=== PATIENT | female | born 1970 | race Caucasian/White ===

== ENCOUNTER → 2020-08-05 07:32 | Outpatient (CLI) | payer OTHER, SELFPAY ==
[2020-08-05 08:14] LABS: Add Manual Diff / Slide Review NO; Basophils Absolute Auto 0 /uL (0-100); Basophils Percent Auto 0.7 % (0-2); Eosinophils Absolute Auto 100 /uL (0-450); Hematocrit 41.1 % (36-46); Lymphocytes Absolute Auto 3400 /uL (1100-4500); Lymphocytes Percent Auto 47.4 % (25-40); Mean Corpuscular HGB Conc 34.1 % (30-36); Mean Corpuscular Hemoglobin 29.9 PG (26-34); Mean Corpuscular Volume 87.7 fL (80-100); Monocytes Absolute Auto 400 /uL (0-900); Monocytes Percent Auto 6.3 % (3-14); Neutrophils Absolute Auto 3100 /uL (1500-7000); Neutrophils Percent Auto 43.6 % (50-75); Platelet Count 247 X10^3/uL (150-400); Red Blood Cell Count 4.69 X10^6/uL (4.0-5.2); Red Cell Distribution Width 13.4 % (11.6-14.8); White Blood Cell Count 7.1 X10^3/uL (4.5-11.0)
[2020-08-05 08:58] LABS: Alanine Aminotransferase 38 IU/L (<35); Albumin 4.5 g/dL (3.5-5.0); Albumin Globulin Ratio 1.8 (1.0-2.8); Alkaline Phosphatase 94 U/L (38-126); Aspartate Aminotransferase 27 IU/L (14-36); BUN Creatinine Ratio 20.6 (6-22); Bilirubin Total 0.3 mg/dL (0.2-1.3); Blood Urea Nitrogen 14 mg/dL (7-17); Calcium 9.4 mg/dL (8.4-10.2); Carbon Dioxide 29 mmol/L (22-32); Chloride 104 mmol/L (98-107); Cholesterol 303 mg/dL (140-199); Estimated Glomerular Filt Rate > 60.0 mL/min (>60); Globulin 2.5 g/dL (1.7-4.1); Glucose 127 mg/dL (70-100); HDL Cholesterol 31 mg/dL (40-60); HEMOLYSIS < 15 (0-50); Potassium 4.8 mmol/L (3.4-5.1); Sodium 138 mmol/L (137-145)
[2020-08-05 09:11] LABS: Triglycerides 828 mg/dL (35-150)
== END ==
PROVIDERS: Family Provider Family Medicine; PCP Registered Nurse; Referring Provider Registered Nurse; Visit Provider Registered Nurse
DX: Z00.00 Encounter for general adult medical examination without abnormal findings (principal); H60.501 Unspecified acute noninfective otitis externa, right ear; F41.8 Other specified anxiety disorders; E78.2 Mixed hyperlipidemia
CPT/HCPCS: 36415; 80053; 80061; 85025

== ENCOUNTER → 2022-06-03 10:16 | Outpatient (CLI) | payer OTHER, SELFPAY ==
[2022-06-03 12:10] LABS: Add Manual Diff / Slide Review NO; Basophils Absolute Auto 0 /uL (0-100); Basophils Percent Auto 0.5 % (0-2); Eosinophils Absolute Auto 200 /uL (0-450); Eosinophils Percent Auto 2.9 % (2-4); Hematocrit 41.6 % (36-46); Hemoglobin 14.4 g/dL (12.0-16.0); Lymphocytes Absolute Auto 3200 /uL (1100-4500); Lymphocytes Percent Auto 53.3 % (25-40); Mean Corpuscular HGB Conc 34.6 % (30-36); Mean Corpuscular Hemoglobin 29.5 PG (26-34); Mean Corpuscular Volume 85.3 fL (80-100); Monocytes Absolute Auto 300 /uL (0-900); Monocytes Percent Auto 5.4 % (3-14); Neutrophils Absolute Auto 2300 /uL (1500-7000); Neutrophils Percent Auto 37.9 % (50-75); Platelet Count 237 X10^3/uL (150-400); Red Blood Cell Count 4.88 X10^6/uL (4.0-5.2); Red Cell Distribution Width 12.9 % (11.6-14.8); White Blood Cell Count 6.1 X10^3/uL (4.5-11.0)
[2022-06-03 12:46] LABS: Alanine Aminotransferase 38 IU/L (<35); Albumin 4.6 g/dL (3.5-5.0); Albumin Globulin Ratio 1.6 (1.0-2.8); Alkaline Phosphatase 75 U/L (38-126); Aspartate Aminotransferase 24 IU/L (14-36); BUN Creatinine Ratio 21.2 (6-22); Bilirubin Total 0.5 mg/dL (0.2-1.3); Blood Urea Nitrogen 14 mg/dL (7-17); Calcium 9.5 mg/dL (8.4-10.2); Carbon Dioxide 27 mmol/L (22-32); Chloride 104 mmol/L (98-107); Cholesterol 243 mg/dL (140-199); Estimated Glomerular Filt Rate > 60 mL/min (>60); Globulin 2.8 g/dL (1.7-4.1); Glucose 124 mg/dL (70-100); HDL Cholesterol 35 mg/dL (40-60); HEMOLYSIS < 15 (0-50); Hemoglobin A1C% w Est Avg Glu 6.7 % (4.0-6.0); LDL Cholesterol Calculated 130 mg/dL (<100); Potassium 4.6 mmol/L (3.4-5.1); Sodium 142 mmol/L (137-145); Total Protein 7.4 g/dL (6.3-8.2); Triglycerides 388 mg/dL (35-150)
[2022-06-03 13:22] LABS: TSH w/ Reflex to FT4 5.62 uIU/mL (0.47-4.68)
[2022-06-03 14:27] LABS: Free T4, Direct Thyroxine 0.81 ng/dL (0.78-2.19)
== END ==
PROVIDERS: Family Provider Family Medicine; PCP Pediatrics; Referring Provider Pediatrics; Visit Provider Pediatrics
DX: E66.9 Obesity, unspecified (principal); E78.5 Hyperlipidemia, unspecified; F33.1 Major depressive disorder, recurrent, moderate; F41.8 Other specified anxiety disorders; R73.01 Impaired fasting glucose
CPT/HCPCS: 36415; 80053; 80061; 83036; 84439; 84443; 85025

== ENCOUNTER → 2022-10-17 08:47 | Outpatient (CLI) | payer SELFPAY ==
[2022-10-17 10:46] LABS: Alanine Aminotransferase 34 IU/L (<35); Albumin 4.3 g/dL (3.5-5.0); Albumin Globulin Ratio 1.7 (1.0-2.8); Alkaline Phosphatase 62 U/L (38-126); Aspartate Aminotransferase 25 IU/L (14-36); BUN Creatinine Ratio 27.4 (6-22); Bilirubin Total 0.3 mg/dL (0.2-1.3); Blood Urea Nitrogen 17 mg/dL (7-17); Calcium 9.1 mg/dL (8.4-10.2); Carbon Dioxide 28 mmol/L (22-32); Chloride 104 mmol/L (98-107); Cholesterol 188 mg/dL (140-199); Estimated Glomerular Filt Rate > 60 mL/min (>60); Globulin 2.5 g/dL (1.7-4.1); Glucose 111 mg/dL (70-100); HDL Cholesterol 32 mg/dL (40-60); HEMOLYSIS < 15 (0-50); LDL Cholesterol Calculated 124 mg/dL (<100); Potassium 4.5 mmol/L (3.4-5.1); Sodium 139 mmol/L (137-145); Total Protein 6.8 g/dL (6.3-8.2); Triglycerides 160 mg/dL (35-150)
[2022-10-17 10:57] LABS: Free T4, Direct Thyroxine 0.71 ng/dL (0.78-2.19)
[2022-10-17 11:11] LABS: Thyroid Stimulating Hormone 6.26 uIU/mL (0.47-4.68)
[2022-10-18 05:29] LABS: x Labcorp Estim. Avg Glu (eAG) 137 mg/dL (.); x Labcorp Hemoglobin A1c 6.4 % (4.8-5.6)
== END ==
PROVIDERS: Family Provider Family Medicine; PCP Family Medicine; Referring Provider Family Medicine; Visit Provider Family Medicine
DX: E11.9 Type 2 diabetes mellitus without complications (principal); E78.5 Hyperlipidemia, unspecified; E03.9 Hypothyroidism, unspecified
CPT/HCPCS: 36415; 80053; 80061; 83036; 84439; 84443

== ENCOUNTER → 2023-01-06 08:45 | Outpatient (CLI) | payer SELFPAY ==
[2023-01-06 09:28] LABS: Alanine Aminotransferase 31 IU/L (<35); Albumin 4.7 g/dL (3.5-5.0); Albumin Globulin Ratio 1.7 (1.0-2.8); Alkaline Phosphatase 77 U/L (38-126); Aspartate Aminotransferase 27 IU/L (14-36); BUN Creatinine Ratio 26.1 (6-22); Bilirubin Total 0.7 mg/dL (0.2-1.3); Blood Urea Nitrogen 18 mg/dL (7-17); Calcium 9.5 mg/dL (8.4-10.2); Carbon Dioxide 30 mmol/L (22-32); Chloride 102 mmol/L (98-107); Estimated Glomerular Filt Rate > 60 mL/min (>60); Globulin 2.8 g/dL (1.7-4.1); Glucose 130 mg/dL (70-100); HEMOLYSIS < 15 (0-50); Potassium 4.6 mmol/L (3.4-5.1); Sodium 139 mmol/L (137-145); Total Protein 7.5 g/dL (6.3-8.2)
[2023-01-06 09:44] LABS: Free T4, Direct Thyroxine 0.98 ng/dL (0.78-2.19)
[2023-01-06 09:58] LABS: Thyroid Stimulating Hormone 3.31 uIU/mL (0.47-4.68)
[2023-01-07 00:23] LABS: x Labcorp Estim. Avg Glu (eAG) 134 mg/dL (.); x Labcorp Hemoglobin A1c 6.3 % (4.8-5.6)
== END ==
PROVIDERS: Family Provider Family Medicine; PCP Family Medicine; Referring Provider Family Medicine; Visit Provider Family Medicine
DX: E03.9 Hypothyroidism, unspecified (principal); R73.01 Impaired fasting glucose
CPT/HCPCS: 36415; 80053; 83036; 84439; 84443

== ENCOUNTER → 2023-05-08 12:43 | Outpatient (CLI) | payer OTHER, SELFPAY ==
[2023-05-08 13:28] LABS: Alanine Aminotransferase 47 IU/L (<35); Albumin 4.8 g/dL (3.5-5.0); Albumin Globulin Ratio 1.5 (1.0-2.8); Alkaline Phosphatase 71 U/L (38-126); Aspartate Aminotransferase 31 IU/L (14-36); Bilirubin Total 0.8 mg/dL (0.2-1.3); Blood Urea Nitrogen 16 mg/dL (7-17); Calcium 10.1 mg/dL (8.4-10.2); Carbon Dioxide 28 mmol/L (22-32); Chloride 102 mmol/L (98-107); Estimated Glomerular Filt Rate > 60 mL/min (>60); Globulin 3.1 g/dL (1.7-4.1); Glucose 120 mg/dL (70-100); HEMOLYSIS < 15 (0-50); Potassium 3.9 mmol/L (3.4-5.1); Sodium 140 mmol/L (137-145); Total Protein 7.9 g/dL (6.3-8.2)
[2023-05-08 13:32] LABS: Hemoglobin A1C% w Est Avg Glu 6.3 % (4.0-6.0)
[2023-05-08 13:45] LABS: Free T4, Direct Thyroxine 1.32 ng/dL (0.78-2.19)
[2023-05-08 13:59] LABS: Thyroid Stimulating Hormone 0.969 uIU/mL (0.47-4.68)
== END ==
PROVIDERS: Family Provider Family Medicine; PCP Family Medicine; Referring Provider Family Medicine; Visit Provider Family Medicine
DX: E03.9 Hypothyroidism, unspecified (principal); R73.01 Impaired fasting glucose; F41.8 Other specified anxiety disorders
CPT/HCPCS: 36415; 80053; 83036; 84439; 84443

== ENCOUNTER → 2024-01-17 14:54 | Outpatient (CLI) | payer OTHER, SELFPAY ==
--- NOTE | 2024-01-17 14:56 | DI.MG.S_ITS ---
BILATERAL DIGITAL SCREENING MAMMOGRAM 3D/2D WITH CAD: 01/17/2024 CLINICAL: Routine screening. Comparison is made to exams dated: 10/06/2016 mammogram, 11/17/2014 mammogram, and 11/15/2013 mammogram - [facility]. There are scattered areas of fibroglandular density in both breasts (category b / 25%-50% glandular tissue). Current study was also evaluated with a Computer Aided Detection (CAD) system. There is a focal asymmetry in the right breast at 9 o'clock anterior depth. No other significant masses, calcifications, or other findings are seen in either breast. IMPRESSION: INCOMPLETE: NEEDS ADDITIONAL IMAGING EVALUATION The focal asymmetry in the right breast is indeterminate. A diagnostic mammogram and ultrasound is recommended. Based on the Tyrer Cuzick model (a risk assessment model) the patient's lifetime risk is 5.8% and her 10 year risk is 1.7%. According to the ACR, ACS, and NCCN guidelines, an annual breast MRI exam along with mammogram is recommended if the patient's lifetime risk is 20% or greater. This exam was interpreted at Station ID: [id number]. NOTE: For mammograms, a report in lay terms will be sent to the patient. Approximately 15% of breast malignancies will not be visualized mammographically. In the management of a palpable breast mass, a negative mammogram must not discourage biopsy of a clinically suspicious lesion. Electronically Signed By: Susan Snell M.D., Ph.D. eb/:01/25/2024 11:16:38 letter sent: Additional Imaging Needed ACR BI-RADS Category 0: Incomplete 3340F
== END ==
PROVIDERS: Family Provider Family Medicine; PCP Family Medicine; Referring Provider Family Medicine; Visit Provider Family Medicine
DX: Z12.31 Encounter for screening mammogram for malignant neoplasm of breast (principal); R92.323 Mammographic fibroglandular density, bilateral breasts
CPT/HCPCS: 77063; 77067

== ENCOUNTER → 2024-02-09 10:02 | Outpatient (CLI) | payer OTHER, SELFPAY ==
--- NOTE | 2024-02-09 10:03 | DI.CT.S_ITS ---
PROCEDURE: CT LUNG LOW DOSE SCREENING INDICATIONS: 40 yr smoking history TECHNIQUE: Noncontrast 2.0-2.5 mm thick sections acquired from the pulmonary apices to the posterior costophrenic angles. 7 mm thick axial MIP, and 5 mm coronal and sagittal reformats were then acquired. For radiation dose reduction, the following was used: automated exposure control, adjustment of mA and/or kV according to patient size. COMPARISON: None. FINDINGS: Image quality: Diagnostic. Lower Neck: No enlarged lymph nodes. Thyroid: No thyroid nodules which require sonographic follow up, per consensus guidelines. Axillae: No enlarged lymph nodes. Chest Wall: Unremarkable. Bones: Unremarkable. Lungs and Pleura: No pneumothorax or pleural effusions. 2-3 mm solid nodule, right upper lobe (series 3, image 76). Mild centrilobular emphysema. Heart: Heart size is normal. No pericardial effusion. Thoracic Vessels: The aorta and pulmonary arteries demonstrate normal size. Mediastinum and Suze: No enlarged lymph nodes. Esophagus: No wall thickening. No hiatal hernia. Upper Abdomen: Visualized upper abdomen solid organs and bowel loops appear normal. IMPRESSION: No suspicious pulmonary nodules. LUNG-RADS 2; continued annual screening, if eligible. Clinically Significant Non-pulmonary Findings: None. Dictated by: Mohinder Wong M.D. on 02/11/2024 at 8:06 Approved by: Mohinder Wong M.D. on 02/11/2024 at 8:11
--- NOTE | 2024-02-09 10:03 | DI.US.S_ITS ---
LIMITED ULTRASOUND OF RIGHT BREAST: 02/09/2024 CLINICAL: Patient returns today to evaluate a focal asymmetry in the right breast. Comparison is made to exams dated: 02/09/2024 mammogram, 01/17/2024 mammogram, 10/06/2016 mammogram, and 11/17/2014 mammogram - [facility]. Color flow and real-time ultrasound of the right breast 9 o'clock region and axilla were performed. Gamino scale images of the real-time examination were reviewed. There is a 0.5 cm x 0.4 cm x 0.3 cm oval mass in the right breast at 9 o'clock anterior depth 2 cm from the nipple. This oval mass is hypoechoic. This correlates with mammography findings. Color flow imaging demonstrates that there is no vascularity present. Adjacent similar mass measuring 0.5 cm incidentally seen. No enlarged right axillary lymph nodes. IMPRESSION: PROBABLY BENIGN The 0.5 cm mass in the right breast has a differential diagnosis of a lymph node and is probably benign. A follow-up mammogram and an ultrasound in 6 months is recommended to demonstrate stability. Exam findings were conveyed to the patient. This exam was interpreted at Station ID: [id number]. Electronically Signed By: Mike Atkinson M.D. slc/:02/09/2024 11:01:31 letter sent: Followup Recommended Ultrasound BI-RADS: 3 Probably benign
--- NOTE | 2024-02-09 10:04 | DI.MG.S_ITS ---
UNILATERAL RIGHT DIGITAL DIAGNOSTIC MAMMOGRAM 3D/2D WITH ADDITIONAL VIEWS: 02/09/2024 CLINICAL: Additional evaluation requested from prior study. Comparison is made to exams dated: 01/17/2024 mammogram, 10/06/2016 mammogram, and 11/17/2014 mammogram - [facility]. There are scattered areas of fibroglandular density in the right breast (category b / 25%-50% glandular tissue). There is an oval focal asymmetry with an obscured and circumscribed margin in the right breast at 9 o'clock anterior depth. No other significant masses or calcifications are seen in the breast. IMPRESSION: INCOMPLETE: NEEDS ADDITIONAL IMAGING EVALUATION The oval focal asymmetry in the right breast resembles a cyst and is indeterminate. A targeted ultrasound is recommended and will immediately follow. Based on the Tyrer Cuzick model (a risk assessment model) the patient's lifetime risk is 5.7% and her 10 year risk is 1.8%. According to the ACR, ACS, and NCCN guidelines, an annual breast MRI exam along with mammogram is recommended if the patient's lifetime risk is 20% or greater. This exam was interpreted at Station ID: [id number]. NOTE: For mammograms, a report in lay terms will be sent to the patient. Approximately 15% of breast malignancies will not be visualized mammographically. In the management of a palpable breast mass, a negative mammogram must not discourage biopsy of a clinically suspicious lesion. Electronically Signed By: Mike Atkinson M.D. slc/:02/09/2024 10:35:06 ACR BI-RADS Category 0: Incomplete 3340F
== END ==
PROVIDERS: Family Provider Family Medicine; PCP Family Medicine; Referring Provider Physician Assistant; Visit Provider Physician Assistant
DX: R92.8 Other abnormal and inconclusive findings on diagnostic imaging of breast (principal); N63.11 Unspecified lump in the right breast, upper outer quadrant; R91.1 Solitary pulmonary nodule; J43.2 Centrilobular emphysema; R92.323 Mammographic fibroglandular density, bilateral breasts; F17.210 Nicotine dependence, cigarettes, uncomplicated
CPT/HCPCS: 71271; 76642; 77065; G0279

== ENCOUNTER → 2024-02-20 09:50 | Outpatient (CLI) | payer OTHER, SELFPAY ==
[2024-02-20 10:59] LABS: Add Manual Diff / Slide Review NO; Basophils Absolute Auto 0 /uL (0-100); Basophils Percent Auto 0.7 % (0-2); Eosinophils Absolute Auto 100 /uL (0-450); Eosinophils Percent Auto 2.7 % (2-4); Hematocrit 41.2 % (36-46); Hemoglobin 14.1 g/dL (12.0-16.0); Lymphocytes Absolute Auto 2400 /uL (1100-4500); Lymphocytes Percent Auto 43.9 % (25-40); Mean Corpuscular HGB Conc 34.2 % (30-36); Mean Corpuscular Hemoglobin 29.6 PG (26-34); Mean Corpuscular Volume 86.3 fL (80-100); Monocytes Absolute Auto 300 /uL (0-900); Monocytes Percent Auto 5.4 % (3-14); Neutrophils Absolute Auto 2500 /uL (1500-7000); Neutrophils Percent Auto 47.3 % (50-75); Platelet Count 253 X10^3/uL (150-400); Red Blood Cell Count 4.77 X10^6/uL (4.0-5.2); Red Cell Distribution Width 13.2 % (11.6-14.8); White Blood Cell Count 5.4 X10^3/uL (4.5-11.0)
[2024-02-20 11:15] LABS: Alanine Aminotransferase 33 IU/L (<35); Albumin 4.8 g/dL (3.5-5.0); Albumin Globulin Ratio 1.7 (1.0-2.8); Alkaline Phosphatase 69 U/L (38-126); Aspartate Aminotransferase 28 IU/L (14-36); BUN Creatinine Ratio 21.3 (6-22); Bilirubin Total 0.9 mg/dL (0.2-1.3); Blood Urea Nitrogen 16 mg/dL (7-17); Calcium 9.8 mg/dL (8.4-10.2); Carbon Dioxide 25 mmol/L (22-32); Chloride 104 mmol/L (98-107); Cholesterol 254 mg/dL (140-199); Estimated Glomerular Filt Rate > 60 mL/min (>60); Globulin 2.8 g/dL (1.7-4.1); Glucose 134 mg/dL (70-100); HDL Cholesterol 36 mg/dL (40-60); HEMOLYSIS < 15 (0-50); LDL Cholesterol Calculated 160 mg/dL (<100); Potassium 4.6 mmol/L (3.4-5.1); Sodium 137 mmol/L (137-145); Total Protein 7.6 g/dL (6.3-8.2); Triglycerides 288 mg/dL (35-150)
[2024-02-20 12:00] LABS: Free T4, Direct Thyroxine 1.08 ng/dL (0.78-2.19)
[2024-02-20 12:14] LABS: Thyroid Stimulating Hormone 1.97 uIU/mL (0.47-4.68)
== END ==
PROVIDERS: Family Provider Family Medicine; PCP Family Medicine; Referring Provider Family Medicine; Visit Provider Family Medicine
DX: Z00.00 Encounter for general adult medical examination without abnormal findings (principal); E03.9 Hypothyroidism, unspecified; E78.5 Hyperlipidemia, unspecified
CPT/HCPCS: 36415; 80053; 80061; 83036; 84439; 84443; 85025

== ENCOUNTER 2024-04-30 12:18 | Day surgery (SDC) | payer OTHER, SELFPAY ==
--- NOTE | 2024-04-30 | PATH_ITS ---
[facility] Accession Number: [id number] No. of containers..01 Tissue . 01 Material submitted: . colon - TRANSVERSE COLON POLYP . 01 Diagnosis: TRANSVERSE COLON POLYP, BIOPSY: Colonic mucosa with no diagnostic abnormality, consistent with polypoid redundancy. Deeper level examination performed. MRV 05/03/2024 1437 Local . 01 Electronically signed: . Yudy Ward MD, Pathologist NPI- [id number] . 01 Gross description: . Received in formalin with two patient identifiers and transverse colon polyp, is a single martínez soft tissue fragment 0.2 cm in greatest dimension. Submitted in cassette A1. ([id number]) /SARAH 05/01/2024 1025 Local . 01 Pathologist provided ICD-10: Z12.11 . 01 CPT . 628344 Specimen Comment: A courtesy copy of this report has been sent to [phone] Performed at: [address] [facility] [address], [place], [place] [id number] MD Farhat Gan MD Phone: [phone]
[2024-04-30 12:46] VITALS: BP 110/66; PULSE 79; RESP 12; TEMP 36.4; O2SAT 96
--- NOTE | 2024-04-30 13:32 | P.HP_ITS ---
History of Present Illness History of Present Illness Date Patient Seen: 04/30/24 Time Patient Seen: 13:32 Chief complaint: Colonoscopy Narrative: 54-year-old woman here for 1st time screening colonoscopy. No family history of colon cancer. No abdominal concerns today. FORMERLY [facility], [facility] Medical History Well adult on routine health check Preventative health care Hypothyroidism Skin abnormality Rosacea Right otitis externa Depression Anxiety Hyperlipidemia Family History Brother Alcoholism Brother Cancer High cholesterol Brother Drug addiction Father Heart disease Mother Age: 91 High cholesterol Stroke Sister High cholesterol Sister Age: 57 High cholesterol Social History Smoking Status: Current every day smoker Tobacco: How many years used: 40 quit status: considering quitting second hand exposure: No alcohol intake: never substance use type: does not use Meds Home Medications and Allergies Home Medications Medication Instructions Recorded Confirmed Type bupropion HCl 150 mg tablet,12 hr 150 mg PO BID #60 ea 01/31/24 04/30/24 Rx sustained-release (Wellbutrin SR) levothyroxine 75 mcg tablet 75 mcg PO DAILY #90 tabs 04/22/24 04/30/24 Rx paroxetine HCl 20 mg tablet 20 mg PO DAILY #90 tabs 04/22/24 04/30/24 Rx simvastatin 20 mg tablet 20 mg PO DAILY #90 tabs 04/22/24 04/30/24 Rx Allergies Allergy/AdvReac Type Severity Reaction Status Date / Time No Known Drug Allergies Allergy Verified 04/30/24 12:35 Exam Vital Signs (past 8 hours): - 04/30/24 12:46 Temperature 97.6 F Pulse Rate 79 Respiratory Rate 12 Blood Pressure 110/66 Pulse Oximetry 96 Oxygen Delivery Method Room Air Oxygen Delivery Method Room Air Narrative Exam Narrative: General adult woman alert oriented no acute distress Chest nonlabored respiration Extremities warm well perfused Assessment & Plan Assessment & Plan narrative: The patient requires colorectal screening and colonoscopy is recommended. Technical details were discussed. Risks, benefits, alternatives explained. Risks including but not limited to myocardial infarction, aspiration, bleeding, pain, missed lesion, incomplete examination, need for further radiographic studies, intestinal injury, and need for major abdominal surgery were discussed. All questions were answered to their satisfaction, and they are in agreement with this plan. Time-Based Coding :: [TOTAL MINUTES] spent with patient and on the chart (including review of chart, obtaining history, exam, reviewing outside data, placing orders, documenting exam and treatment plan, and counseling patient) on [DATE].
[2024-04-30 14:14] VITALS: BP 86/48; PULSE 71; RESP 14; TEMP 36.2; O2SAT 96
--- NOTE | 2024-04-30 14:20 | P.OP.COLON_ITS ---
Operative Date/Time/Diagnoses Date of procedure: 04/30/24 Time of procedure: 14:20 Pre-op diagnosis: Colorectal screening Post-op diagnosis: other (Colonic polyp x1) Procedure & Clinicians Study performed: Screening colonoscopy and polypectomy Same procedure as scheduled: Yes Indications: Colorectal screening Surgeon: Garrett Jules Procedure Notes Procedure in detail: The history and physical was performed/updated and the patient is ASA class is 2. The procedure was discussed in detail with the patient. Potential risks complications including infection, bleeding, missed diagnosis, perforation, need for surgery, and were explained. Their questions were answered and informed consent was obtained. Patient was brought to the procedure room and placed standard monitoring equipment. The patient's vital signs were monitored continuously throughout the entire procedure. Prior to starting time-out was performed. The patient was placed in the left lateral recumbent position. Procedural sedation was administered by anesthesia. Examination began with a thorough inspection of the perianal area there was no evidence of fissures, fistulae, external hemorrhoids or cutaneous malignancy. The colonoscopy scope was then placed into the anal canal and was advanced to the cecum, which was identified by the ileocecal valve, the appendiceal orifice and the confluence of the taenia. The scope was then slowly withdrawn examining colon thoroughly in all directions, irrigating it of any residual stool. The scope was retroflexed within the rectum The patient tolerated the procedure well. They will be discharged once criteria are met. The prep was of good/excellent quality. The withdrawl time was 10 minutes. FINDINGS * Transverse colon polyp 3 mm removed with biopsy forceps * Diverticulosis of distal colon Specimen(s): other (Transverse colon polyp) Impression: Polyp x1 Post-procedure Recommendations: High fiber diet Disposition: same day surgery
[2024-04-30 14:21] VITALS: BP 104/62; PULSE 68; RESP 15; O2SAT 94
[2024-04-30 14:23] VITALS: BP 106/66; PULSE 69; RESP 17; TEMP 36.1; O2SAT 94
[2024-04-30 14:27] VITALS: BP 109/69; PULSE 75; RESP 16; TEMP 36.9; O2SAT 96
== END 2024-04-30 14:37 | disposition home or self-care (01) ==
PROVIDERS: Family Provider Family Medicine; PCP Family Medicine; Referring Provider Surgery; Visit Provider Surgery
PROC: 0DJD8ZZ Inspection of Lower Intestinal Tract, Via Natural or Artificial Opening Endoscopic (ICD-10-PCS; CPT 45378; principal; 2024-04-30 13:30)
DX: Z12.11 Encounter for screening for malignant neoplasm of colon (principal); K57.30 Diverticulosis of large intestine without perforation or abscess without bleeding; K63.5 Polyp of colon
CPT/HCPCS: 45380; J2704

== ENCOUNTER → 2024-08-13 11:45 | Outpatient (CLI) | payer OTHER, SELFPAY ==
[2024-08-13 12:12] LABS: Hemoglobin A1C% w Est Avg Glu 5.9 % (4.0-6.0)
[2024-08-13 12:28] LABS: Alanine Aminotransferase 48 IU/L (<35); Albumin 4.9 g/dL (3.5-5.0); Alkaline Phosphatase 76 U/L (38-126); Aspartate Aminotransferase 34 IU/L (14-36); BUN Creatinine Ratio 19.4 (6-22); Bilirubin Total 0.5 mg/dL (0.2-1.3); Blood Urea Nitrogen 14 mg/dL (7-17); Calcium 10.2 mg/dL (8.4-10.2); Carbon Dioxide 25 mmol/L (22-32); Chloride 104 mmol/L (98-107); Cholesterol 237 mg/dL (140-199); Estimated Glomerular Filt Rate > 60 mL/min (>60); Globulin 2.5 g/dL (1.7-4.1); Glucose 154 mg/dL (70-100); HDL Cholesterol 38 mg/dL (40-60); HEMOLYSIS < 15 (0-50); LDL Cholesterol Calculated 148 mg/dL (<100); Potassium 4.6 mmol/L (3.4-5.1); Sodium 138 mmol/L (137-145); Total Protein 7.4 g/dL (6.3-8.2); Triglycerides 257 mg/dL (35-150)
== END ==
LOC: LAB 11:46
PROVIDERS: Family Provider Family Medicine; PCP Family Medicine; Referring Provider Family Medicine; Visit Provider Family Medicine
DX: R73.01 Impaired fasting glucose (principal); E78.5 Hyperlipidemia, unspecified
CPT/HCPCS: 36415; 80053; 80061; 83036

== ENCOUNTER → 2024-11-14 09:57 | Outpatient (CLI) | payer OTHER, SELFPAY ==
--- NOTE | 2024-11-14 09:58 | DI.US.S_ITS ---
PROCEDURE: US BREAST RT LIMITED COMPARISON: [facility], BREAST RT LIMITED, 02/09/2024, 10:38. INDICATIONS: f/u FINDINGS: IMPRESSION: Dictated by: Susan Snell M.D.,Ph.D. on 11/14/2024 at 11:56 Approved by: Susan Snell M.D.,Ph.D. on 11/14/2024 at 12:04
--- NOTE | 2024-11-14 09:58 | DI.MG.S_ITS ---
US breast RT limited, MM diagnostic mammo BI: 11/14/2024 BI-RADS: 3 CLINICAL: 54-year old female for bilateral diagnostic mammogram and right diagnostic breast ultrasound. Tyrer-Cuzick lifetime risk of 4.6%. No personal or first- degree family history of breast cancer. PRIOR EXAMS 02/09/2024, 01/17/2024, 10/06/2016, 11/17/2014. MAMMOGRAPHY TECHNIQUE: 2D and 3D (tomosynthesis) digital mammographic views obtained, with additional images as needed for full coverage. Current study was also evaluated with a Computer Aided Detection (CAD) system. ULTRASOUND TECHNIQUE Real-time markham scale and color doppler imaging of the area of clinical interest was performed with image documentation. TARGETED Right Breast Ultrasound: Real-time ultrasound exam was performed focused to area of clinical and/or imaging concern. DENSITY B. There are scattered areas of fibroglandular density. MAMMOGRAPHY FINDINGS Right (finding-1): Outer at 9:00, Anterior depth, measuring 0.4cm: There is a circumscribed, round mass present. This finding has been stable since January 2024. Left: No suspicious mass, asymmetry, microcalcification, or other abnormality seen. ULTRASOUND FINDINGS Right (finding-1): Outer at 9:00, 2 cm from nipple, measuring 0.4 x 0.4 x 0.4 cm: Correlating with findings on mammogram there is a round, circumscribed, hypoechoic cyst vs solid mass present. Doppler shows no vascularity. This finding is stable since 02/09/2024. Right: Outer at 9:00, 2 cm from nipple, measuring 0.5 x 0.2 x 0.4 cm: There is an oval, circumscribed, hypoechoic cyst vs solid mass present. Doppler shows no vascularity. This finding is stable since 02/09/2024. This finding was incidentally seen. IMPRESSION: Right (CvS): Outer at 9:00, 2 cm from nipple, measuring 0.4 x 0.4 x 0.4 cm * Probably Benign. Right (CvS): Outer at 9:00, 2 cm from nipple, measuring 0.5 x 0.2 x 0.4 cm * Probably Benign. Left * No evidence of malignancy. RECOMMENDATIONS Right: Outer at 9:00, 2 cm from nipple * Followup with diagnostic mammography and diagnostic ultrasound in one year (Follow up in 1 year to demonstrate near 2 years of stability. Patient will be due for bilateral mammogram at that time). Right: Outer at 9:00, 2 cm from nipple * Followup with diagnostic mammography and diagnostic ultrasound in one year (Follow up in 1 year to demonstrate near 2 years of stability. Patient will be due for bilateral mammogram at that time). COMMENTS: Findings and recommendations were conveyed to the patient during today's evaluation. OVERALL ASSESSMENT CATEGORY BI-RADS-3: Probably Benign. ELECTRONICALLY SIGNED: Susan Snell M.D. on 11/14/2024 at 12:11:33 PM PT Interpreting Station ID: [id number]
--- NOTE | 2024-11-14 11:10 | DI.US.S_ITS ---
Patient Name: MARIANN LAUREANO date: 1970 Sex: F Attending Physician: Jonel Indications: Date: 11/14/2024 12:11 At the request of: RUI CHAMBERLAIN Procedure: US breast RT limited US breast RT limited, MM diagnostic mammo BI: 11/14/2024 BI-RADS: 3 CLINICAL: 54-year old female for bilateral diagnostic mammogram and right diagnostic breast ultrasound. Tyrer-Cuzick lifetime risk of 4.6%. No personal or first-degree family history of breast cancer. PRIOR EXAMS 02/09/2024, 01/17/2024, 10/06/2016, 11/17/2014. MAMMOGRAPHY TECHNIQUE: 2D and 3D (tomosynthesis) digital mammographic views obtained, with additional images as needed for full coverage. Current study was also evaluated with a Computer Aided Detection (CAD) system. ULTRASOUND TECHNIQUE Real-time markham scale and color doppler imaging of the area of clinical interest was performed with image documentation. TARGETED Right Breast Ultrasound: Real-time ultrasound exam was performed focused to area of clinical and/or imaging concern. DENSITY B. There are scattered areas of fibroglandular density. MAMMOGRAPHY FINDINGS Right (finding-1): Outer at 9:00, Anterior depth, measuring 0.4cm: There is a circumscribed, round mass present. This finding has been stable since January 2024. Left: No suspicious mass, asymmetry, microcalcification, or other abnormality seen. Continued Report - Page 2 of 2 Patient Name: MARIANN LAUREANO date: 1970 Sex: F Attending Physician: Jonel Indications: Date: 11/14/2024 12:11 At the request of: RIU CHAMBERLAIN Procedure: US breast RT limited ULTRASOUND FINDINGS Right (finding-1): Outer at 9:00, 2 cm from nipple, measuring 0.4 x 0.4 x 0.4 cm: Correlating with findings on mammogram there is a round, circumscribed, hypoechoic cyst vs solid mass present. Doppler shows no vascularity. This finding is stable since 02/09/2024. Right: Outer at 9:00, 2 cm from nipple, measuring 0.5 x 0.2 x 0.4 cm: There is an oval, circumscribed, hypoechoic cyst vs solid mass present. Doppler shows no vascularity. This finding is stable since 02/09/2024. This finding was incidentally seen. IMPRESSION: Right (CvS): Outer at 9:00, 2 cm from nipple, measuring 0.4 x 0.4 x 0.4 cm * Probably Benign. Right (CvS): Outer at 9:00, 2 cm from nipple, measuring 0.5 x 0.2 x 0.4 cm * Probably Benign. Left * No evidence of malignancy. RECOMMENDATIONS Right: Outer at 9:00, 2 cm from nipple * Followup with diagnostic mammography and diagnostic ultrasound in one year (Follow up in 1 year to demonstrate near 2 years of stability. Patient will be due for bilateral mammogram at that time). Right: Outer at 9:00, 2 cm from nipple * Followup with diagnostic mammography and diagnostic ultrasound in one year (Follow up in 1 year to demonstrate near 2 years of stability. Patient will be due for bilateral mammogram at that time). COMMENTS: Findings and recommendations were conveyed to the patient during today's evaluation. OVERALL ASSESSMENT CATEGORY BI-RADS-3: Probably Benign. ELECTRONICALLY SIGNED: Susan Snell M.D. on 11/14/2024 at 12:11:33 PM PT Interpreting Station ID: [id number]
== END ==
PROVIDERS: PCP Family Medicine; Referring Provider Family Medicine; Visit Provider Family Medicine
DX: R92.8 Other abnormal and inconclusive findings on diagnostic imaging of breast (principal); N63.15 Unspecified lump in the right breast, overlapping quadrants
CPT/HCPCS: 76642; 77066; G0279